=== PATIENT | female | born 1960 | race Caucasian/White ===

== ENCOUNTER 2022-11-22 07:39 | Day surgery (SDC) | payer BC, SELFPAY ==
--- NOTE | 2022-11-18 11:15 | HO.ANESPROP2 ---
Documented by User: Destinee Dixon NP 11/18/22 11:15 HPI - Anesthesia Eval Consult details Narrative: 61yo F for Colonoscopy PMFSH Surgical History Surgical History (Updated 11/18/22 @ 10:49 by Sahara Mccoy RN) History of carpal tunnel release History of colonoscopy Social History Social History Patient Tobacco Use Status: Never used Tobacco Are you DNR?: No Advance Directives: No Advance Directives Information Provided: Yes Nutrition Risks: No Nutritional Risk Meds Allergies Allergy/AdvReac Type Severity Reaction Status Date / Time No Known Allergies Allergy Verified 11/18/22 10:48 Exam Exam Date and Time: November 18, 2022 1115 Assessment and Plan Assessment Anesthesia Assessment: Chart Reviewed Documented by User: Sawyer Patel MD 11/22/22 08:53 [facility] Family History Family history of problems with anesthesia: No Surgical History Surgical History (Updated 11/18/22 @ 10:49 by Sahara Mccoy RN) History of carpal tunnel release History of colonoscopy History of Problems with Anesthesia: No Social History Social History Patient Tobacco Use Status: Never used Tobacco Are you DNR?: No Advance Directives: No Advance Directives Information Provided: Yes Nutrition Risks: No Nutritional Risk Meds Allergies Allergy/AdvReac Type Severity Reaction Status Date / Time No Known Allergies Allergy Verified 11/18/22 10:48 Assessment and Plan Assessment Anesthesia Assessment: Anesthesia Plan Discussed Final Anesthetic Review Family History of Problems with Anesthesia: No History of Problems with Anesthesia: No NPO: Yes ASA Class: II Final Preanesthetic Review: No Changes in Pt Med Stat, Meds/Allgs Chart Reviewed, Consent Obtained/Reviewed and Anes Risks/Benef Reviewed Patient Risk: Intermediate Procedure Risk: Low Anesthetic Plan Anesthetic Plan: MAC: Disposition: Standard PACU
[2022-11-22 07:46] VITALS: BP 127/72; PULSE 67; RESP 20; TEMP 36.1; O2SAT 97
[2022-11-22 07:54] VITALS: BMI 30.8
--- NOTE | 2022-11-22 09:38 | MHC.SHP ---
Pre-Procedural Eval Section A Date of Service: 11/22/22 Section B Chief Complaint: Encounter for screening for malignant neoplasm Details of Present Illness: see H&P no changes Relevant Family History (Specify if Yes): No Relevant Social History: None Present Medications: see Short Stay Collaborative assessment Medical History: No relevant PMH History of Previous Operations: No relevant previous surgery Allergies: Allergies Allergy/AdvReac Type Severity Reaction Status Date / Time No Known Allergies Allergy Verified 11/18/22 10:48 Review of Systems Sugical H&P ROS: Negative: Constitution, Cardiovascular, Respiratory, Neurological, Psychiatric, Hem-Onc, Allergic/Immunologic, Gastrointestinal, Genitourinary, Musculoskeletal, Integumentary, Endocrine and Eyes/Ears/Nose/Throat Exam Surgical H&P Exam: Normal: HEENT, Normal: Heart, Normal: Lungs, Normal: Extremities, Normal: Abdomen, Normal: Skin and Normal: Neurological Plan Diagnosis/Plan: Unchanged I have reviewed the history and physical and performed a pertinent physical examination on my patient. No changes have occurred unless specified. Time Spent With Patient Time: Total time managing care of this patient today ____ minutes.
--- NOTE | 2022-11-22 09:38 | PM.OP ---
Brief Operative Note Date of Service: 11/22/22 Pre-op diagnosis: screening Surgeon: Jose Jackson MD Anesthesia: MAC Was an Bioprocess Engineer used for this Procedure?: No Estimated blood loss (mL): 0 Pathology: none sent Condition: stable Disposition: PACU
[2022-11-22 09:40] VITALS: BP 110/70; PULSE 70; RESP 18; TEMP 36.1; O2SAT 98
[2022-11-22 09:55] VITALS: BP 109/60; PULSE 57; RESP 18; TEMP 36.1; O2SAT 98
== END 2022-11-22 10:30 | disposition home or self-care (01) ==
PROVIDERS: PCP Nurse Practitioner Family; Visit Provider Internal Medicine Gastroenterology
PROC: 0DJD8ZZ Inspection of Lower Intestinal Tract, Via Natural or Artificial Opening Endoscopic (ICD-10-PCS; CPT 45378; principal; 2022-11-22 08:50)
DX: Z12.11 Encounter for screening for malignant neoplasm of colon (principal)
CPT/HCPCS: 45378